=== PATIENT | female | born 1995 | race Two or more races ===

== ENCOUNTER 2020-04-06 12:58 | Emergency (ER) | payer MEDICAID, OTHER ==
[~2020-04-06] VITALS: Ht 154.9 cm; Wt 81.6 kg
[2020-04-06 15:35] LABS: Basophils # (auto) 0.1 10 ^3/uL (0-0.2); Basophils % (auto) 0.7 % (0.0-2.0); Eosinophils # (auto) 0.1 10 ^3/uL (0-0.8); Eosinophils % (auto) 1.6 % (0.0-7.0); Hematocrit 39.2 % (36.0-46.0); Lymphocytes % (auto) 27.5 % (10.0-50.0); Mean Corpuscular Hemoglobin 27.8 pg (28.0-32.0); Mean Corpuscular Hgb Conc. 33.1 g/dL (32.0-36.0); Mean Corpuscular Volume 83.8 fL (80.0-100.0); Monocytes # (auto) 0.5 10 ^3/uL (0-1.3); Monocytes % (auto) 6.2 % (0.0-12.0); Neutrophils # (auto) 4.7 10 ^3/uL (1.6-8.6); Red Blood Cells 4.67 10^6/uL (4.0-5.20); Red Cell Distribution Width 13.5 % (11.8-14.3); White Blood Cell 7.4 10^3/uL (4.4-10.8)
[2020-04-06 15:39] LABS: Albumin 3.9 g/dL (3.4-5.0); Calcium 8.7 mg/dL (8.5-10.1); Potassium 3.4 mmol/L (3.5-5.1)
[2020-04-06 15:40] LABS: Urine Bacteria NONE SEEN /hpf (None Seen); Urine Blood 2+ /uL (Negative); Urine Specific Gravity 1.017 (1.001-1.035); Urine WBC 1 /hpf (0 - 5)
[2020-04-06 15:43] LABS: Bilirubin, Total 0.4 mg/dL (0.2-1.0); Total Protein 7.8 g/dL (6.4-8.2)
[2020-04-06 17:26] VITALS: BP 118/67
== END 2020-04-06 17:31 | disposition home or self-care (01) ==
LOC: ER 12:58
DX: O20.0 Threatened abortion (principal); Z3A.01 Less than 8 weeks gestation of pregnancy; Z88.5 Allergy status to narcotic agent
CPT/HCPCS: 36415; 76801; 76817; 80053; 81001; 84702; 85025

== ENCOUNTER 2020-04-20 18:32 | Emergency (ER) | payer MEDICAID ==
[~2020-04-20] VITALS: Ht 154.9 cm; Wt 79.8 kg
[2020-04-20 18:35] VITALS: BP 133/67
[2020-04-20] MEDS ORDERED: REMDESIVIR PER PHARMACY 0 ML IV SCH (19:00)
[2020-04-20 19:16] LABS: Urine WBC None Seen /hpf (0 - 5)
[2020-04-20 19:35] LABS: Urine Bacteria NONE SEEN /hpf (None Seen); Urine Blood 2+ /uL (Negative); Urine Mucus FEW (None Seen); Urine Specific Gravity 1.016 (1.001-1.035)
[2020-04-20 20:21] LABS: Basophils # (auto) 0 10 ^3/uL (0-0.2); Basophils % (auto) 0.5 % (0.0-2.0); Eosinophils # (auto) 0.1 10 ^3/uL (0-0.8); Eosinophils % (auto) 1.3 % (0.0-7.0); Hematocrit 37.6 % (36.0-46.0); Hemoglobin 12.6 g/dL (12.2-16.2); Lymphocytes # (auto) 2.4 10 ^3/uL (0.4-5.4); Lymphocytes % (auto) 26.3 % (10.0-50.0); Mean Corpuscular Hemoglobin 28.5 pg (28.0-32.0); Mean Corpuscular Hgb Conc. 33.6 g/dL (32.0-36.0); Mean Corpuscular Volume 84.8 fL (80.0-100.0); Monocytes # (auto) 0.6 10 ^3/uL (0-1.3); Monocytes % (auto) 6.2 % (0.0-12.0); Neutrophils % (auto) 65.7 % (37.0-80.0); Platelet Count (auto) 316 10^3/uL (140-450); Red Blood Cells 4.43 10^6/uL (4.0-5.20); Red Cell Distribution Width 13.3 % (11.8-14.3); White Blood Cell 9.1 10^3/uL (4.4-10.8)
== END 2020-04-21 00:08 | disposition home or self-care (01) ==
LOC: ER 18:32
DX: O20.0 Threatened abortion (principal); Z3A.09 9 weeks gestation of pregnancy; Z88.6 Allergy status to analgesic agent
CPT/HCPCS: 36415; 76801; 76817; 81001; 84702; 85025

== ENCOUNTER 2020-05-29 12:01 | Emergency (ER) | payer MEDICAID ==
[~2020-05-29] VITALS: Ht 154.9 cm; Wt 78.0 kg
[2020-05-29 12:33] VITALS: BP 120/62
[2020-05-29 13:03] LABS: Urine Bacteria FEW /hpf (None Seen); Urine Blood 1+ /uL (Negative); Urine Mucus FEW (None Seen); Urine Specific Gravity 1.021 (1.001-1.035); Urine WBC 24 /hpf (0 - 5)
== END 2020-05-29 15:02 | disposition home or self-care (01) ==
LOC: ER 12:01
DX: O23.42 Unspecified infection of urinary tract in pregnancy, second trimester (principal); Z3A.15 15 weeks gestation of pregnancy; Z88.6 Allergy status to analgesic agent
CPT/HCPCS: 36415; 76805; 81001; 84702

== ENCOUNTER 2020-09-02 13:20 | Observation (INO) | payer MEDICAID ==
[2020-09-02] MEDS ORDERED: PREN-96 PO (14:02)
[2020-09-02] MEDS ORDERED: FERR1TAB36 PO (14:02)
== END 2020-09-02 14:45 | disposition home or self-care (01) ==
LOC: LDRP 13:20
PROVIDERS: ADMIT Obstetrics & Gynecology; ATTEND Obstetrics & Gynecology
DX: O36.8130 Decreased fetal movements, third trimester, not applicable or unspecified (principal); Z3A.29 29 weeks gestation of pregnancy
CPT/HCPCS: 59025; 81002; 94760; G0378

== ENCOUNTER 2020-10-12 20:30 | Observation (INO) | payer MEDICAID ==
[~2020-10-12] VITALS: Ht 154.9 cm; Wt 78.0 kg
[~2020-10-12 20:30] MED LIST: FERR1TAB36 PO; PREN-96 PO
== END 2020-10-12 21:45 | disposition home or self-care (01) ==
LOC: LDRP 20:30
PROVIDERS: ADMIT Obstetrics & Gynecology; ATTEND Obstetrics & Gynecology
DX: O26.893 Other specified pregnancy related conditions, third trimester (principal); R10.2 Pelvic and perineal pain; R10.30 Lower abdominal pain, unspecified; Z3A.33 33 weeks gestation of pregnancy
CPT/HCPCS: 59025; 81002; G0378

== ENCOUNTER → 2020-10-21 | Outpatient (CLI) | payer MEDICAID ==
[2020-10-21 08:45] LABS: Basophils # (auto) 0 10 ^3/uL (0-0.2); Basophils % (auto) 0.5 % (0.0-2.0); Eosinophils # (auto) 0.2 10 ^3/uL (0-0.8); Eosinophils % (auto) 1.8 % (0.0-7.0); Hematocrit 34.4 % (36.0-46.0); Hemoglobin 11.6 g/dL (12.2-16.2); Lymphocytes # (auto) 2.1 10 ^3/uL (0.4-5.4); Lymphocytes % (auto) 24.1 % (10.0-50.0); Mean Corpuscular Hemoglobin 26.7 pg (28.0-32.0); Mean Corpuscular Hgb Conc. 33.6 g/dL (32.0-36.0); Mean Corpuscular Volume 79.6 fL (80.0-100.0); Monocytes # (auto) 0.5 10 ^3/uL (0-1.3); Monocytes % (auto) 6.3 % (0.0-12.0); Neutrophils # (auto) 5.8 10 ^3/uL (1.6-8.6); Neutrophils % (auto) 67.3 % (37.0-80.0); Nucleated Red Blood Cells % 0.1 %; Red Blood Cells 4.33 10^6/uL (4.0-5.20); Red Cell Distribution Width 14.2 % (11.8-14.3); White Blood Cell 8.5 10^3/uL (4.4-10.8)
== END | disposition home or self-care (01) ==
LOC: LAB 08:17
PROVIDERS: ATTEND Obstetrics & Gynecology
DX: Z34.83 Encounter for supervision of other normal pregnancy, third trimester (principal); Z3A.34 34 weeks gestation of pregnancy
CPT/HCPCS: 36415; 84112; 85025; 86762

== ENCOUNTER 2020-10-30 16:37 | Observation (INO) | payer MEDICAID ==
[~2020-10-30] VITALS: Ht 154.9 cm; Wt 79.4 kg
[2020-10-30] MEDS ORDERED: LACTATED RINGER'S 1,000 ML IV ONE (17:45)
[2020-10-30] MEDS: TERBUTALINE SULFATE 1 MG/ML 1ML VIAL SC SCH ×2 (17:54→18:49)
== END 2020-10-30 20:11 | disposition home or self-care (01) ==
LOC: LDRP 16:37
PROVIDERS: ADMIT Obstetrics & Gynecology; ATTEND Obstetrics & Gynecology
DX: O62.9 Abnormality of forces of labor, unspecified (principal); O36.8130 Decreased fetal movements, third trimester, not applicable or unspecified; O26.893 Other specified pregnancy related conditions, third trimester; R42 Dizziness and giddiness; Z3A.36 36 weeks gestation of pregnancy
CPT/HCPCS: 59025; 76818; 81002; 94760; 96360; 96361; 96372; G0378; J3105

== ENCOUNTER → 2020-11-04 | Outpatient (CLI) | payer MEDICAID ==
[2020-11-05 06:06] LABS: RPR Non Reactive (Non Reactive)
== END | disposition home or self-care (01) ==
LOC: LAB 09:30
PROVIDERS: ATTEND Obstetrics & Gynecology
DX: Z34.83 Encounter for supervision of other normal pregnancy, third trimester (principal); Z3A.37 37 weeks gestation of pregnancy
CPT/HCPCS: 86592

== ENCOUNTER 2020-11-09 12:38 | Observation (INO) | payer MEDICAID ==
[~2020-11-09] VITALS: Ht 157.5 cm; Wt 0.5 kg
[2020-11-09] MEDS ORDERED: TERBUTALINE SULFATE 1 MG/ML 1ML VIAL SC SCH (13:45)
== END 2020-11-09 14:50 | disposition home or self-care (01) ==
LOC: LDRP 12:38
PROVIDERS: ADMIT Obstetrics & Gynecology; ATTEND Obstetrics & Gynecology
DX: O36.8130 Decreased fetal movements, third trimester, not applicable or unspecified (principal); Z3A.37 37 weeks gestation of pregnancy
CPT/HCPCS: 59025; 81002; 94760; 96372; G0378; G0379; J3105

== ENCOUNTER → 2020-11-16 | Outpatient (CLI) | payer MEDICAID ==
[~2020-11-16] MED LIST changes: +DOCU-94 PO; +HYDR-4902 PO; +IBUP600T27 PO; +TRAM-297 PO
== END | disposition home or self-care (01) ==
LOC: OBS 09:35
PROVIDERS: ATTEND Obstetrics & Gynecology
DX: Z01.812 Encounter for preprocedural laboratory examination (principal); Z20.822 Contact with and (suspected) exposure to COVID-19; O34.219 Maternal care for unspecified type scar from previous cesarean delivery; Z3A.38 38 weeks gestation of pregnancy
CPT/HCPCS: C9803; U0003

== ENCOUNTER 2020-11-18 04:35 | Inpatient (IN) | payer MEDICAID ==
[2020-11-18] VITALS (20 sets, daily range): BP systolic 99–116; BP diastolic 53–85
[~2020-11-18] VITALS: Ht 154.9 cm; Wt 77.0 kg
[~2020-11-18 04:35] MED LIST changes: -DOCU-94 PO; -HYDR-4902 PO; -IBUP600T27 PO; -TRAM-297 PO
[2020-11-18] MEDS ORDERED: LACTATED RINGER'S 1,000 ML IV ONE (04:45)
[2020-11-18] MEDS ORDERED: ceFAZolin 1GM/50ML 50 ML IV ONE (04:45)
[2020-11-18 05:42] LABS: Basophils # (auto) 0 10 ^3/uL (0-0.2); Eosinophils # (auto) 0.1 10 ^3/uL (0-0.8); Hemoglobin 11.9 g/dL (12.2-16.2); Lymphocytes # (auto) 2.4 10 ^3/uL (0.4-5.4); Mean Corpuscular Hemoglobin 26.8 pg (28.0-32.0); Mean Corpuscular Volume 79.7 fL (80.0-100.0); Neutrophils # (auto) 5.8 10 ^3/uL (1.6-8.6); White Blood Cell 8.8 10^3/uL (4.4-10.8)
[2020-11-18 05:45] LABS: Basophils % (auto) 0.4 % (0.0-2.0); Eosinophils % (auto) 1.2 % (0.0-7.0); Hematocrit 35.5 % (36.0-46.0); Lymphocytes % (auto) 27.5 % (10.0-50.0); Mean Corpuscular Hgb Conc. 33.6 g/dL (32.0-36.0); Monocytes # (auto) 0.4 10 ^3/uL (0-1.3); Monocytes % (auto) 4.9 % (0.0-12.0); Nucleated Red Blood Cells % 0.1 %; Red Blood Cells 4.45 10^6/uL (4.0-5.20); Red Cell Distribution Width 15.4 % (11.8-14.3)
[2020-11-18 05:54] LABS: INR 0.94 (0.9-1.15); Partial Thromboplastin Time 27.8 sec (23.6-33.0)
[2020-11-18 05:59] LABS: Potassium 3.8 mmol/L (3.5-5.1)
[2020-11-18 06:20] LABS: Albumin 2.5 g/dL (3.4-5.0); Bilirubin, Total 0.4 mg/dL (0.2-1.0); Calcium 8.4 mg/dL (8.5-10.1); Total Protein 6.5 g/dL (6.4-8.2)
[2020-11-18 06:24] LABS: Amphetamine Screen, Urine NEGATIVE (NEGATIVE); Barbiturate Scree,Urine NEGATIVE (NEGATIVE); Benzodiazephine Screen, Urine NEGATIVE (NEGATIVE); Cannabinoid Screen, Urine NEGATIVE (NEGATIVE); Cocaine Screen, Urine NEGATIVE (NEGATIVE); Opiate Scree,Urine NEGATIVE (NEGATIVE); Phencyclidine Screen, Urine NEGATIVE (NEGATIVE)
[2020-11-18 06:38] LABS: Urine Bacteria FEW /hpf (None Seen); Urine Blood Negative /uL (Negative); Urine Mucus FEW (None Seen); Urine Specific Gravity 1.018 (1.001-1.035); Urine WBC 1 /hpf (0 - 5)
[2020-11-18] MEDS ORDERED: TETRACAINE 1% INJ 2 ML VIAL IJ ONE (07:25)
[2020-11-18] MEDS ORDERED: MIDAZOLAM HCL 2MG/2ML 2ml VIAL (1mg/ml) ONE (07:27)
[2020-11-18] MEDS ORDERED: fentaNYL CITRATE 100 MCG/2 ML VL ONE (07:27)
[2020-11-18] MEDS ORDERED: MORPHINE SULF PF 2 MG/2 ML SYRG ONE (07:31)
[2020-11-18] MEDS ORDERED: ePHEDrine SULFATE 50 MG/ML AMP ONE (07:51)
[2020-11-18] MEDS: CARBOPROST TROMETHAMINE 250 MCG/1ML VIAL IM ONE ×2 (08:16→15:04)
[2020-11-18] MEDS ORDERED: ceFAZolin 1GM/50ML 50 ML IV SCH (08:45)
[2020-11-18] MEDS ORDERED: LACT. RINGERS/OXYTOCIN 20UNITS 1,000 ML IV ONE (08:45)
[2020-11-18] MEDS ORDERED: MORPHINE SULFATE 4 MG/ML SYR/VIAL IV PRN (08:45)
[2020-11-18] MEDS ORDERED: ONDANSETRON HCL 4 MG/2 ML VIAL IV PRN ×3 (08:45→09:15)
[2020-11-18] MEDS ORDERED: ONDANSETRON HCL 4 MG/2 ML VIAL ONE (08:54)
[2020-11-18] MEDS ORDERED: NALBUPHINE HCL 10 MG/1ml INJECTION SUBCUT ONE (09:00)
[2020-11-18] MEDS ORDERED: NALOXONE HCL 0.4 MG/ML VIAL IV PRN (09:00)
[2020-11-18] MEDS ORDERED: KETOROLAC TROMETH 30 MG/ML 1ML VIAL IV PRN (09:00)
[2020-11-18] MEDS ORDERED: SODIUM CITR/CITRIC ACID ORAL SOLN 30 ML PO SCH (09:00)
[2020-11-18] MEDS ORDERED: diphenhdrAMINE HCL 50 MG/1 ML VL IV PRN (09:00)
[2020-11-18] MEDS ORDERED: DexAMETHasone SOD PHOS 10MG/1ML VIAL INJ IV PRN (09:00)
[2020-11-18] MEDS ORDERED: SODIUM CITR/CITRIC ACID ORAL SOLN 30 ML PO ONE (09:00)
[2020-11-18] MEDS ORDERED: LACT. RINGERS/OXYTOCIN 20UNITS 500 ML IV ONE (11:15)
[2020-11-18] MEDS ORDERED: ACETAMINOPHEN IV 1000 MG/100ML (10MG/ML) IV ONE ×2 (12:00→14:00)
[2020-11-18] MEDS: LACTATED RINGER'S 1,000 ML IV SCH ×3 (12:45→21:20)
[2020-11-18] MEDS: ceFAZolin 1GM/50ML 50 ML IV SCH ×2 (15:08→22:49)
[2020-11-18] MEDS: DIPHENOXYLATE W/ATROPINE 2.5 MG TAB PO SCH ×2 (15:09→22:00)
[2020-11-18 21:31] LABS: Basophils # (auto) 0.1 10 ^3/uL (0-0.2); Basophils % (auto) 0.4 % (0.0-2.0); Eosinophils # (auto) 0 10 ^3/uL (0-0.8); Hematocrit 34.3 % (36.0-46.0); Hemoglobin 11.2 g/dL (12.2-16.2); Lymphocytes # (auto) 1.2 10 ^3/uL (0.4-5.4); Lymphocytes % (auto) 10.1 % (10.0-50.0); Mean Corpuscular Hemoglobin 26.2 pg (28.0-32.0); Mean Corpuscular Hgb Conc. 32.7 g/dL (32.0-36.0); Mean Corpuscular Volume 80.2 fL (80.0-100.0); Monocytes # (auto) 0.4 10 ^3/uL (0-1.3); Monocytes % (auto) 3.6 % (0.0-12.0); Neutrophils # (auto) 10.4 10 ^3/uL (1.6-8.6); Neutrophils % (auto) 85.9 % (37.0-80.0); Nucleated Red Blood Cells % 0.1 %; Red Blood Cells 4.27 10^6/uL (4.0-5.20); Red Cell Distribution Width 15.2 % (11.8-14.3); White Blood Cell 12.1 10^3/uL (4.4-10.8)
[2020-11-18] MEDS ORDERED: DIPHENOXYLATE W/ATROPINE 2.5 MG TAB PO SCH (23:15)
[2020-11-18] MEDS ORDERED: ACETAMINOPHEN IV 1000 MG/100ML (10MG/ML) IV PRN (23:15)
[2020-11-19] VITALS (11 sets, daily range): BP systolic 87–113; BP diastolic 38–62
[2020-11-19] MEDS ORDERED: ACETAMINOPHEN IV 1000 MG/100ML (10MG/ML) IV PRN
[2020-11-19] MEDS: LACTATED RINGER'S 1,000 ML IV SCH (03:24)
[2020-11-19 06:39] LABS: Basophils # (auto) 0 10 ^3/uL (0-0.2); Basophils % (auto) 0.3 % (0.0-2.0); Hematocrit 31.4 % (36.0-46.0); Lymphocytes # (auto) 1.7 10 ^3/uL (0.4-5.4); Monocytes # (auto) 0.4 10 ^3/uL (0-1.3)
[2020-11-19 06:41] LABS: Eosinophils # (auto) 0.1 10 ^3/uL (0-0.8); Eosinophils % (auto) 0.7 % (0.0-7.0); Hemoglobin 10.4 g/dL (12.2-16.2); Lymphocytes % (auto) 19.7 % (10.0-50.0); Mean Corpuscular Hemoglobin 26.5 pg (28.0-32.0); Mean Corpuscular Hgb Conc. 33.1 g/dL (32.0-36.0); Mean Corpuscular Volume 80.2 fL (80.0-100.0); Monocytes % (auto) 5.4 % (0.0-12.0); Neutrophils # (auto) 6.2 10 ^3/uL (1.6-8.6); Neutrophils % (auto) 73.9 % (37.0-80.0); Red Blood Cells 3.92 10^6/uL (4.0-5.20); Red Cell Distribution Width 15.4 % (11.8-14.3); White Blood Cell 8.4 10^3/uL (4.4-10.8)
[2020-11-19] MEDS: ceFAZolin 1GM/50ML 50 ML IV SCH (07:30)
[2020-11-19 08:06] LABS: RPR Non Reactive (Non Reactive)
[2020-11-19] MEDS ORDERED: BISACODYL 10 MG RECT SUPP PR PRN (09:00)
[2020-11-19] MEDS: IBUPROFEN 800 MG TAB PO PRN ×2 (09:21→20:14)
[2020-11-19] MEDS: DOCUSATE CALCIUM 240 MG CAP PO SCH (11:38)
[2020-11-19] MEDS: DOCUSATE SOD 100 MG CAP PO SCH ×2 (11:38→22:10)
[2020-11-19] MEDS: SIMETHICONE 80 MG CHEWABLE TABLET PO SCH ×3 (11:42→22:10)
[2020-11-19] MEDS: traMADol HCL 50 MG TAB PO PRN (15:46)
[2020-11-20 03:00] VITALS: BP 96/50
[2020-11-20] MEDS: IBUPROFEN 800 MG TAB PO PRN ×2 (04:01→15:54)
[2020-11-20] MEDS: SIMETHICONE 80 MG CHEWABLE TABLET PO SCH ×4 (05:40→22:29)
[2020-11-20 06:54] VITALS: BP 96/48
[2020-11-20] MEDS: DOCUSATE CALCIUM 240 MG CAP PO SCH (09:28)
[2020-11-20] MEDS: DOCUSATE SOD 100 MG CAP PO SCH ×2 (09:28→22:29)
[2020-11-20] MEDS ORDERED: HYDR-4902 PO (09:57)
[2020-11-20] MEDS ORDERED: DOCU-94 PO (09:58)
[2020-11-20] MEDS ORDERED: IBUP600T27 PO (09:58)
[2020-11-20] MEDS: traMADol HCL 50 MG TAB PO PRN (10:59)
[2020-11-20 11:00] VITALS: BP 103/68
[2020-11-20] MEDS ORDERED: TRAM-297 PO (12:50)
[2020-11-20 15:00] VITALS: BP_SYST 117; BP_SYST 92; BP_DIAS 57; BP_DIAS 69
[2020-11-20 19:07] VITALS: BP 101/69
[2020-11-20 23:00] VITALS: BP 115/71
[2020-11-21 03:08] VITALS: BP 108/45
[2020-11-21] MEDS: SIMETHICONE 80 MG CHEWABLE TABLET PO SCH (05:29)
[2020-11-21 10:30] VITALS: BP 123/77
[2020-11-21] MEDS: DOCUSATE SOD 100 MG CAP PO SCH (10:34)
[2020-11-21] MEDS: DOCUSATE CALCIUM 240 MG CAP PO SCH ×2 (10:34→10:35)
[2020-11-21] MEDS ORDERED: TETANUS-DIPTH-ACEL PERTUSSIS 0.5ML SYR Tdap IM ONE (11:15)
== END 2020-11-21 13:18 | disposition home or self-care (01) | DRG 540 ==
LOC: LDRP 04:35
PROVIDERS: ADMIT Obstetrics & Gynecology; ATTEND Obstetrics & Gynecology
PROC: 10D00Z1 Extraction of Products of Conception, Low, Open Approach (ICD-10-PCS; principal; 2020-11-18 07:31)
DX: O34.211 Maternal care for low transverse scar from previous cesarean delivery (principal); Z37.0 Single live birth; Z88.5 Allergy status to narcotic agent; Z3A.39 39 weeks gestation of pregnancy
CPT/HCPCS: 36415; 80053; 80307; 81001; 85025; 85610; 85730; 86592; 86850; 86900; 86901; 90471; 90715; 94760; 94762; 96360; 96361; 96365; 96366; 96372; G0378; J0131; J0690; J2250; J2405; J2590